=== PATIENT | female | born 2000 | race American Indian/Alaskan Native ===

== ENCOUNTER 2019-02-12 12:24 | Emergency (ER) | payer MEDICAID, OTHER ==
[2019-02-12 12:48] VITALS: BP 113/85
[2019-02-12 13:30] LABS: Basophils % (Auto) 0.1 % (0.0-1.8); Eosinophils # (Auto) 0.1 K/mm3 (0.0-0.4); Eosinophils % (Auto) 0.7 % (0.0-4.3); Hematocrit 40.5 % (30.3-42.9); Hemoglobin 14.1 gm/dl (10.1-14.3); Lymphocytes # (Auto) 1.3 K/mm3 (1.2-5.4); Lymphocytes % (Auto) 11.2 % (13.4-35.0); Mean Corpuscular HGB Conc 35 % (30-34); Mean Corpuscular Volume 88 fl (79-97); Monocytes # (Auto) 0.7 K/mm3 (0.0-0.8); Monocytes % (Auto) 6.2 % (0.0-7.3); Platelet Count 299 K/mm3 (140-440); Red Blood Count 4.59 M/mm3 (3.65-5.03); Red Cell Distribution Width 12.6 % (13.2-15.2)
[2019-02-12 13:50] LABS: BUN/Creatinine Ratio 18; Blood Urea Nitrogen 11 mg/dL (7-17); Calcium 9.6 mg/dL (8.4-10.2); Hemolysis Index 10
--- NOTE | 2019-02-12 13:54 | Emergency Department Report ---
ED General Adult HPI - General Chief complaint: Chest Pain Stated complaint: ANXIETY/CHEST PAIN Time Seen by Provider: 02/12/19 12:53 Source: patient, EMS Mode of arrival: Stretcher Limitations: No Limitations - History of Present Illness Initial comments: This is a 18 year old female that states that she is anxious and depressed. She is transported here via EMS. She states a neighbor found her "laying on the curb". She tells me that "I don't like to be alone". She admits previous prescription for anxiety "only for a week". She states that she is to see a counselor when she was younger for ADHD. She admits to depression but denies suicidal ideation. She doesn't offer any specific trigger for her behavior other than loneliness. She states that she has "anxiety attacks". She has had chest pain before during these episodes. She had some chest discomfort associated with anxiety, rapid breathing and tingling in her hands. She states that this is happened to her before. Her symptoms have resolved at this point other than being emotionally labile. She denies hallucinosis and paranoid ideation. -: Gradual, unknown Associated Symptoms: denies other symptoms - Related Data Previous Rx's Medication Instructions Recorded Last Taken Type ALPRAZolam [Xanax TAB] 1 mg PO TID PRN #10 tab 07/15/16 Unknown Rx Allergies Allergy/AdvReac Type Severity Reaction Status Date / Time No Known Allergies Allergy Verified 02/12/19 12:48 ED Review of Systems ROS: Stated complaint: ANXIETY/CHEST PAIN Other details as noted in HPI Constitutional: denies: chills, fever Eyes: denies: eye pain, eye discharge, vision change ENT: denies: ear pain, throat pain Respiratory: denies: cough, shortness of breath, wheezing Cardiovascular: denies: chest pain, palpitations Endocrine: no symptoms reported Gastrointestinal: denies: abdominal pain, nausea, diarrhea Genitourinary: denies: urgency, dysuria, discharge Musculoskeletal: denies: back pain, joint swelling, arthralgia Skin: denies: rash, lesions Neurological: denies: headache, weakness, paresthesias Psychiatric: as per HPI, anxiety, depression Hematological/Lymphatic: denies: easy bleeding, easy bruising ED Past Medical Hx - Past Medical History Hx Asthma: (childhood asthma) - Social History Smoking Status: Never Smoker - Medications Home Medications: Home Medications Medication Instructions Recorded Confirmed Last Taken Type ALPRAZolam [Xanax TAB] 1 mg PO TID PRN #10 tab 07/15/16 Unknown Rx ED Physical Exam - General Limitations: No Limitations General appearance: alert, other - Head Head exam: Present: atraumatic, normocephalic - Eye Eye exam: Present: normal appearance, PERRL, EOMI. Absent: scleral icterus - ENT ENT exam: Present: mucous membranes moist - Neck Neck exam: Present: normal inspection - Respiratory Respiratory exam: Present: normal lung sounds bilaterally. Absent: respiratory distress - Cardiovascular Cardiovascular Exam: Present: regular rate, normal rhythm. Absent: systolic murmur, diastolic murmur, rubs, gallop - GI/Abdominal GI/Abdominal exam: Present: soft, normal bowel sounds. Absent: distended, tenderness, guarding, rebound, rigid - Extremities Exam Extremities exam: Present: normal inspection, normal capillary refill. Absent: pedal edema, joint swelling, calf tenderness - Back Exam Back exam: Present: normal inspection - Neurological Exam Neurological exam: Present: alert, oriented X3, CN II-XII intact. Absent: motor sensory deficit - Psychiatric Psychiatric exam: Present: normal affect, normal mood - Skin Skin exam: Present: warm, dry, intact, normal color. Absent: rash ED Course Vital Signs 02/12/19 12:46 Temperature 98.5 F Pulse Rate 80 Respiratory 20 Rate Blood Pressure 113/85 O2 Sat by Pulse 98 Oximetry - Reevaluation(s) Reevaluation #1: Waiting mental health consultation. At this point I am presuming that they will determine that the patient has no indications for 1013 (involuntary confinemen t). I certainly have not found any personally. 02/12/19 14:52 Reevaluation #2: Discussed with mental health counselor. The patient was here with her grandmother by then. They contracted for safety. There was no thoughts of self-harm expressed. The patient was referred as above indicated. 02/12/19 15:28 ED Medical Decision Making - Lab Data Result diagrams: 02/12/19 13:18 02/12/19 13:18 Laboratory Results - last 24 hr 02/12/19 02/12/19 02/12/19 13:18 13:18 13:18 WBC 11.2 H RBC 4.59 Hgb 14.1 Hct 40.5 MCV 88 MCH 31 MCHC 35 H RDW 12.6 L Plt Count 299 Lymph % (Auto) 11.2 L Phelps % (Auto) 6.2 Eos % (Auto) 0.7 Baso % (Auto) 0.1 Lymph # 1.3 Phelps # 0.7 Eos # 0.1 Baso # 0.0 Seg Neutrophils % 81.8 H Seg Neutrophils # 9.2 H Sodium 139 Potassium 3.9 Chloride 101.8 Carbon Dioxide 23 Anion Gap 18 BUN 11 Creatinine 0.6 L Estimated GFR > 60 BUN/Creatinine Ratio 18 Glucose 88 Calcium 9.6 Plasma/Serum Alcohol < 0.01 Laboratory Results - last 24 hr 02/12/19 02/12/19 02/12/19 13:18 13:18 13:18 WBC 11.2 H RBC 4.59 Hgb 14.1 Hct 40.5 MCV 88 MCH 31 MCHC 35 H RDW 12.6 L Plt Count 299 Lymph % (Auto) 11.2 L Phelps % (Auto) 6.2 Eos % (Auto) 0.7 Baso % (Auto) 0.1 Lymph # 1.3 Phelps # 0.7 Eos # 0.1 Baso # 0.0 Seg Neutrophils % 81.8 H Seg Neutrophils # 9.2 H Sodium 139 Potassium 3.9 Chloride 101.8 Carbon Dioxide 23 Anion Gap 18 BUN 11 Creatinine 0.6 L Estimated GFR > 60 BUN/Creatinine Ratio 18 Glucose 88 Calcium 9.6 Urine Color Urine Turbidity Urine pH Ur Specific Orrick Urine Protein Urine Glucose (UA) Urine Ketones Urine Blood Urine Nitrite Urine Bilirubin Urine Urobilinogen Ur Leukocyte Esterase Urine WBC (Auto) Urine RBC (Auto) U Epithel Cells (Auto) Urine Bacteria (Auto) Urine HCG, Qual Urine Opiates Screen Urine Methadone Screen Ur Barbiturates Screen Ur Phencyclidine Scrn Ur Amphetamines Screen U Benzodiazepines Scrn Urine Cocaine Screen Plasma/Serum Alcohol < 0.01 02/12/19 02/12/19 13:30 Unknown WBC RBC Hgb Hct MCV MCH MCHC RDW Plt Count Lymph % (Auto) Phelps % (Auto) Eos % (Auto) Baso % (Auto) Lymph # Phelps # Eos # Baso # Seg Neutrophils % Seg Neutrophils # Sodium Potassium Chloride Carbon Dioxide Anion Gap BUN Creatinine Estimated GFR BUN/Creatinine Ratio Glucose Calcium Urine Color Yellow Urine Turbidity Slightly-cloudy Urine pH 8.0 H Ur Specific Orrick 1.006 Urine Protein <15 mg/dl Urine Glucose (UA) Neg Urine Ketones Neg Urine Blood Neg Urine Nitrite Neg Urine Bilirubin Neg Urine Urobilinogen < 2.0 Ur Leukocyte Esterase Neg Urine WBC (Auto) 1.0 Urine RBC (Auto) 2.0 U Epithel Cells (Auto) 18.0 H Urine Bacteria (Auto) 2+ Urine HCG, Qual Negative Urine Opiates Screen Presumptive negative Urine Methadone Screen Presumptive negative Ur Barbiturates Screen Presumptive negative Ur Phencyclidine Scrn Presumptive negative Ur Amphetamines Screen Presumptive negative U Benzodiazepines Scrn Presumptive negative Urine Cocaine Screen Presumptive negative Plasma/Serum Alcohol - EKG Data -: EKG Interpreted by Nc EKG shows normal: sinus rhythm, axis, intervals, QRS complexes, ST-T waves Rate: normal - EKG Data Interpretation: normal EKG Critical care attestation.: If time is entered above; I have spent that time in minutes in the direct care of this critically ill patient, excluding procedure time. ED Disposition Clinical Impression: Anxiety disorder Qualifiers: Anxiety disorder type: unspecified anxiety disorder Qualified Code(s): F41.9 - Anxiety disorder, unspecified Chest pain Qualifiers: Chest pain type: unspecified Qualified Code(s): R07.9 - Chest pain, unspecified Disposition: DC-01 TO HOME OR SELFCARE Is pt being admited?: No Does the pt Need Aspirin: No Condition: Stable Instructions: Chest Pain (ED), Generalized Anxiety Disorder (ED), Anxiety (ED) Additional Instructions: Return to the emergency department any acute change or problem. Follow-up re ferrals as indicated. Referrals: PRIMARY CARE, [Primary Care Provider] - 3-5 Days [facility] [Provider Group] - 2-3 Days [facility] [Outside] - 2-3 Days Time of Disposition: 14:54
[2019-02-12 13:59] LABS: Color,Urine Yellow (Yellow)
[2019-02-12 14:00] LABS: Bacteria,Urine 2+ /HPF (Negative); Bilirubin,Urine NEG (Negative); Blood,Urine NEG (Negative); Protein,Urine <15 mg/dL mg/dL (Negative); Urobilinogen,Urine < 2.0 mg/dL (<2.0)
[2019-02-12 14:01] LABS: HCG Qualitative,Urine Negative (Negative)
[2019-02-12 14:13] LABS: Amphetamine Screen,Urine PRESUMPTIVE NEGATIVE; Benzodiazepines Screen,Urine PRESUMPTIVE NEGATIVE; Cocaine Screen,Urine PRESUMPTIVE NEGATIVE; Methadone Screen,Urine PRESUMPTIVE NEGATIVE; Opiate Screen,Urine PRESUMPTIVE NEGATIVE
[2019-02-12 14:29] LABS: Cannabinoid Screen,Urine PRESUMPTIVE POSITIVE
== END 2019-02-12 17:01 | disposition home or self-care (01) ==
LOC: ED 12:24
DX: R41.9 Unspecified symptoms and signs involving cognitive functions and awareness (principal); J45.909 Unspecified asthma, uncomplicated
CPT/HCPCS: 36415; 80048; 80307; 81001; 81025; 85025; 93005; 93010; 99284; G0480; 80320

== ENCOUNTER 2021-03-30 05:32 | Inpatient (IN) | payer OTHER ==
[2021-03-30] MEDS ORDERED: LOPERAMIDE 2 MG CAP PO PRN (07:59)
[2021-03-30] MEDS ORDERED: TERBUTALINE 1 MG/1 ML INJ SUB-Q PRN (07:59)
[2021-03-30] MEDS ORDERED: LIDOCAINE (2%) 20 MG/1 ML VIAL 20 ML MDV INFILTRATI NR (07:59)
[2021-03-30] MEDS ORDERED: miSOPROStol 200 MCG TAB PR PRN (07:59)
[2021-03-30] MEDS ORDERED: CARBOPROST TROMETHAMINE 250 MCG/1 ML INJ IM PRN (07:59)
[2021-03-30] MEDS ORDERED: AMPICILLIN/NS 2 GM/100 ML 2 GM/100 ML BAG IV ONE (07:59)
[2021-03-30] MEDS ORDERED: METHYLERGONOVINE MALEATE 0.2 MG/ML VIAL IM PRN (07:59)
[2021-03-30] MEDS ORDERED: OXYTOCIN 10 UNIT/1 ML INJ IM PRN (07:59)
[2021-03-30] MEDS ORDERED: OXYTOCIN DRIP 30 UNITS/500 ML BAG IV SCH (08:00)
[2021-03-30 08:16] LABS: Mean Corpuscular HGB Conc 37 % (30-34); Mean Corpuscular Volume 85 fl (79-97); Platelet Count 361 K/mm3 (140-440); Red Blood Count 4.03 M/mm3 (3.65-5.03); Red Cell Distribution Width 13.5 % (13.2-15.2)
--- NOTE | 2021-03-30 08:31 | History and Physical Report ---
History of Present Illness Date of examination: 03/30/21 Date of admission: 03/30/21 07:59 Chief complaint: "Water broke" History of present illness: 20 yo, G1 @ 39.1 weeks gestation, initiated care with [facility] at 11.6 weeks gestation. Her has been complicated by anxiety, mild ventriculomegaly (resolved as of 03/03/21), placental lakes, subchorionic hemorrhage (APA co-managing), LGA and gestational DM. She presents to [facility] this morning with reports of "water broke at 0430 this morning". Reports + FM. Denies any VB. Labs: O+, antibody negative; rubella immune; VDRL non-reactive; HBsAg negative; HSV2 negative; GC/ Chlamydia negative; 1 hr gtt - 161; 3 hr gtt - 74, 184, 150, 96; GBS positive. Past History Past Medical History: other (Anxiety) Past Surgical History: no surgical history Family/Genetic History: diabetes, heart disease, hypertension Social history: single, full code. denies: smoking, alcohol abuse, prescription drug abuse, IV drug use - Obstetrical History Expected Date of Delivery: 04/05/21 Actual Gestation: 39 Week(s) 1 Day(s) : 1 Para: 0 Hx # Term Pregnancies: 0 Number of Pregnancies: 0 Spontaneous Abortions: 0 Induced : 0 Number of Living Children: 0 Medications and Allergies Allergies Allergy/AdvReac Type Severity Reaction Status Date / Time No Known Allergies Allergy Verified 02/12/19 12:48 Home Medications Medication Instructions Recorded Confirmed Last Taken Type Vit-Fe Fumar-FA [ 1 tab PO QDAY 03/30/21 03/30/21 03/29/21 History Vitamin] Active Meds: Active Medications Acetaminophen (Acetaminophen 325 Mg Tab) 650 mg PO Q4H PRN PRN Reason: Pain, Mild (1-3) Butorphanol Tartrate (Butorphanol 2 Mg/1 Ml Inj) 2 mg IV Q2H PRN PRN Reason: Pain , Severe (7-10) Carboprost Tromethamine (Carboprost Tromethamine 250 Mcg/1 Ml Inj) 250 mcg IM ONCE PRN PRN Reason: Uterine Bleeding Ephedrine Sulfate (Ephedrine Sulfate 50 Mg/1 Ml Inj) 10 mg IV Q2M PRN PRN Reason: Hypotension Fentanyl (Fentanyl 100 Mcg/2 Ml Inj) 100 mcg IV Q2H PRN PRN Reason: Pain,Severe (7-10) LABOR PAIN Oxytocin/Sodium Chloride (Pitocin/Ns 30 Unit/500ml) 30 units in 500 mls @ 2 mls/hr IV TITR FERCHO; Protocol Lactated Ringer's (Lactated Ringers) 1,000 mls @ 125 mls/hr IV DIRECT FERCHO Oxytocin/Sodium Chloride (Pitocin/Ns 30 Unit/500ml) 30 units in 500 mls @ 40 mls/hr IV TITR FERCHO; Protocol Ampicillin Sodium (Ampicillin/Ns 2 Gm/100 Ml) 2 gm in 100 mls @ 100 mls/hr IV ONCE ONE; Protocol Stop: 03/30/21 08:58 Ampicillin Sodium (Ampicillin/Ns 1 Gm/50 Ml) 1 gm in 50 mls @ 100 mls/hr IV Q4H FERCHO; Protocol Lidocaine (Lidocaine (2%) 20 Mg/1 Ml Vial 20 Ml Mdv) 20 ml INFILTRATI ONCE ONE Stop: 03/30/21 08:00 Loperamide HCl (Loperamide 2 Mg Cap) 2 mg PO ONCE PRN PRN Reason: give with Hemabate Methylergonovine Maleate (Methylergonovine Maleate 0.2 Mg/Ml Vial) 0.2 mg IM ONCE PRN PRN Reason: Uterine Bleeding Mineral Oil (Mineral Oil 30 Ml Oral Liqd) 30 ml PO QHS PRN PRN Reason: Constipation Misoprostol (Misoprostol 200 Mcg Tab) 800 mcg ID ONCE PRN PRN Reason: Uterine Bleeding Oxytocin (Oxytocin 10 Unit/1 Ml Inj) 10 unit IM ONCE PRN PRN Reason: Uterine Bleeding Terbutaline Sulfate (Terbutaline 1 Mg/1 Ml Inj) 0.25 mg SUB-Q ONCE PRN PRN Reason: Hyperstimulation/Hypertonicity Review of Systems All systems: negative Genitourinary: leakage of fluid (since 0430 this morning) - Vital Signs Vital signs: Vital Signs Pulse BP 100 H 126/77 03/30/21 06:13 03/30/21 06:13 Temp Pulse Resp BP Pulse Ox 98.2 F 78 17 131/88 03/30/21 07:00 03/30/21 07:02 03/30/21 07:00 03/30/21 07:02 - Physical Exam Breasts: Positive: normal Cardiovascular: Regular rate Lungs: Positive: Normal air movement Abdomen: Positive: other (gravid) Vagina: Positive: other (clear fluid noted) Uterus: Positive: enlarged (S=D) Extremities: Positive: edema - Obstetrical FHR: category 1 Uterine Contraction Monitor Mode: External Cervical Dilatation: 2.5 (per RN) Cervical Effacement Percentage: 70 station: -2 Uterine Contraction Frequency (min): 3-4 Uterine Contraction Pattern: Irregular Uterine Tone Measurement Phase: Resting Uterine Contraction Intensity: Mild Results Result Diagrams: 03/30/21 07:45 Abnormal lab results 03/30/21 Range/Units 06:34 Membranes Rupture Positive A (Negative) All other labs normal. Assessment and Plan - Patient Problems (1) SROM (spontaneous rupture of membranes) Current Visit: Yes Status: Acute Plan to address problem: Admit to L & D Initiate Pitocin as tolerated Pain meds as desired per orders Anticipate (2) Positive GBS test Current Visit: Yes Status: Acute Plan to address problem: Initiate GBS prophylaxis as ordered
[2021-03-30 08:34] LABS: Hematocrit 34.4 % (30.3-42.9); Hemoglobin 12.6 gm/dl (10.1-14.3)
[2021-03-30] MEDS ORDERED: fentaNYL 100 MCG/2 ML INJ IV PRN (09:00)
[2021-03-30] MEDS ORDERED: ACETAMINOPHEN 325 MG TAB PO PRN (09:00)
[2021-03-30] MEDS ORDERED: ePHEDrine SULFATE 50 MG/1 ML INJ IV PRN ×2 (09:00→21:13)
[2021-03-30] MEDS: LACTATED RINGERS 1,000 ML IV SCH ×2 (09:33→19:18)
[2021-03-30] MEDS: BUTORPHANOL 2 MG/1 ML INJ IV PRN ×3 (10:17→16:54)
[2021-03-30] MEDS: OXYTOCIN DRIP 30 UNITS/500 ML BAG IV SCH (11:40)
[2021-03-30] MEDS: ONDANSETRON 4 MG/2 ML INJ IV PRN (12:40)
[2021-03-30] MEDS: AMPICILLIN/NS 1 GM/50 ML 1 GM/50 ML BAG IV SCH ×3 (13:56→22:41)
[2021-03-30] MEDS ORDERED: NALOXONE 2 MG/2 ML INJ IV PRN (21:13)
--- NOTE | 2021-03-30 21:13 | Anesthesia Consultation ---
Anesthesia Consult and Med Hx Date of service: 03/30/21 - Airway Anesthetic Teeth Evaluation: Good ROM Head & Neck: Adequate Mental/Hyoid Distance: Adequate Mallampati Class: Class II Intubation Access Assessment: Probably Good - Pulmonary Exam CTA: Yes - Cardiac Exam Cardiac Exam: RRR - Pre-Operative Health Status ASA Pre-Surgery Classification: ASA3 Proposed Anesthetic Plan: Epidural - Pulmonary Hx Asthma: Yes (childhood) - Cardiovascular System Hx Hypertension: No - Central Nervous System Hx Seizures: No Hx Psychiatric Problems: No - Endocrine Hx Renal Disease: No Hx Non-Insulin Dependent Diabetes: Yes Hx Hypothyroidism: No Hx Hyperthyroidism: No - Hematic Hx Anemia: No Hx Sickle Cell Disease: No - Other Systems Hx Alcohol Use: No
--- NOTE | 2021-03-30 21:33 | Progress Note ---
Labor Epidural - Labor Epidural Start Time: 21:18 Stop Time: 21:24 Performed by:: AMY WARREN Procedure: Patient is requesting epidural for labor pain. H&P, and labs reviewed. Procedure explained, questions answered, consent obtained. Patient in sitting position with blood pressure cuff and pulse ox on and working. Timeout performed immediately before start of procedure. Sterile chlorahexadine 0.5% prep/drape. 3 mL 1% lidocaine skin wheal at L[3]-L[4]. 18-gauge i-Opticstead epidural needle advanced to [id number] with saline at [7] cm. 27-gauge spinal needle advanced until clear, free-flowing CSF. Intrathecal dexmedetomidine [5] mcg administered and needle removed. Epidural catheter advanced to [12] cm, negative aspiration for blood and csf, negative test dose 3 ml 1.5% lidocaine with epinephrine. Sterile steri-strips and tegaderm applied, followed by tape reinforcement. Patient tolerated procedure well.
[2021-03-30] MEDS ORDERED: MINERAL OIL 30 ML ORAL LIQD PO PRN (22:00)
[2021-03-30] MEDS: fentaNYL-BUPIV 2 MCG/ML-0.125% 200 MCG/100 ML BAG EPIDURAL SCH (22:43)
[2021-03-31] MEDS ORDERED: BUPIVACAINE/PF (0.25%) 2.5 MG/ML 10 ML VIAL INFILTRATI ONE (02:31)
[2021-03-31] MEDS: ONDANSETRON 4 MG/2 ML INJ IV PRN (02:39)
[2021-03-31] MEDS: AMPICILLIN/NS 1 GM/50 ML 1 GM/50 ML BAG IV SCH (06:06)
[2021-03-31] MEDS: OXYTOCIN DRIP 30 UNITS/500 ML BAG IV SCH (08:00)
[2021-03-31] MEDS: fentaNYL-BUPIV 2 MCG/ML-0.125% 200 MCG/100 ML BAG EPIDURAL SCH (08:01)
--- NOTE | 2021-03-31 08:41 | Event Note ---
Date: 03/31/21 Pt uncomfortable with epidural. SVE: /-3. IUPC placed. Continue to closely monitor clinical status.
[2021-03-31] MEDS ORDERED: BICITRA ORAL LIQD 30ML ONE (12:24)
[2021-03-31] MEDS ORDERED: ceFAZolin/Water 2 GM/20 ML 2 GM/20 ML SYRINGE IV ONE (12:25)
[2021-03-31] MEDS ORDERED: FAMOTIDINE 20 MG/2 ML INJ IV ONE ×2 (12:25→13:00)
[2021-03-31] MEDS ORDERED: LACTATED RINGERS 1,000 ML IV SCH (13:00)
[2021-03-31] MEDS ORDERED: METOCLOPRAMIDE 10 MG/2 ML INJ IV ONE (13:00)
[2021-03-31] MEDS ORDERED: ceFAZolin/Water 2 GM/20 ML 2 GM/20 ML SYRINGE IV NR (13:00)
[2021-03-31] MEDS ORDERED: OXYTOCIN DRIP 30 UNITS/500 ML BAG IV SCH ×2 (13:00→17:00)
[2021-03-31] MEDS ORDERED: BICITRA ORAL LIQD 30ML PO ONE (13:00)
[2021-03-31] MEDS ORDERED: METHYLERGONOVINE MALEATE 0.2 MG/ML VIAL IM PRN (13:06)
[2021-03-31] MEDS ORDERED: miSOPROStol 200 MCG TAB PR PRN (13:06)
[2021-03-31] MEDS ORDERED: WATER FOR IRRIG STERILE 1,500 ML BOTTLE IR ONE (13:20)
[2021-03-31] MEDS ORDERED: SODIUM CHLORIDE 0.9% IRR 1,500 ML BOTTLE IR ONE (13:20)
--- NOTE | 2021-03-31 13:34 | Progress Note ---
Spinal Anesthesia Block - Spinal Anesthesia Block Start Time: 12:58 Stop Time: 13:03 Performed by:: AMY WARREN Procedure: Epidural spotty/not adequate for surgical anesthesiaSitting, sterile chlorahexadine 0.5% prep/drape, 1% lidocaine skin local, 25G spinal needle + introducer at L3-4, + CSF, - Heme, [1.9 ml 0.5% bupivacaine + 10 mcg dexmedetomidine] injected, drape removed, patient positioned supine with left uterine displacement, and spinal level verified to be adequate prior to surgery. SRNA
--- NOTE | 2021-03-31 14:42 | Procedure Note ---
OB Delivery Note - Delivery Date of Delivery: 03/31/21 Surgeon: KATYA DEJESUS - Section Preop diagnosis: arrest of dilation Postop diagnosis: same section procedure: section, primary low transverse Disposition: PACU Narrative: Please see operative report - A at 1 minute: 8 at 5 minutes: 9 Gender: Male (3698g (8lb 2oz) @ 1347 pm)
[2021-03-31] MEDS ORDERED: SODIUM CHLORIDE 0.9% 100 ML ONE (14:43)
[2021-03-31] MEDS ORDERED: PHENYLEPHRINE 10 MG/1 ML INJ SDV ONE (14:43)
[2021-03-31] MEDS ORDERED: dexAMETHasone 20 MG/5 ML VIAL ONE (14:43)
[2021-03-31] MEDS ORDERED: ONDANSETRON 4 MG/2 ML INJ ONE (14:43)
[2021-03-31] MEDS ORDERED: HETASTARCH 6% 500 ML IV ONE (14:43)
[2021-03-31] MEDS ORDERED: BUPIVACAINE/PF (0.5%) 5 MG/1 ML 30 ML VIAL INFILTRATI ONE (14:43)
--- NOTE | 2021-03-31 14:44 | Operative Report ---
Operative Report Operative Report: Date of procedure: March 31, 2021 Preoperative diagnosis: 1)IUP at 39w2d 2) SROM 3) Prolonged ROM 4) Arrest of D ilation 5) Obesity Postoperative diagnosis: Same Procedure: Primary low transverse section Surgeon: Arianne Liang M.D. Anesthesia: Regional Findings: 1) Viable male , Apgars 8 and 9, weight 3698 g, (8 lb 2.4 oz) in cephalic presentation. Occiput posterior 2) Normal-appearing uterus ovaries and tubes Estimated blood loss: mL IV fluids: 1300 mL Urine output: 225 mL, clear but concentrated at the end of the procedure Drains: Pickering to gravity Specimens: None Complications:None. Counts correct x 3 Disposition: Stable to PACU Indication for procedure: Pt is a 20 year old primigravida at 39w2d who presents with rupture of membranes at 0430 on 03/30/21 and progressed to 7 cm and arrested there despite adequate contractility. The decision was made to proceed to section. Operation in detail: After the risks, benefits, alternatives and complications were explained to the patient she gave informed consent for the procedure. She was subsequently taken to the operating room where regional anesthesia was noted to be adequate. She was placed in the dorsal supine position with leftward tilt and prepped and draped in a normal sterile fashion. heart tones were noted prior to incision. A timeout was performed. A Pfannenstiel skin incision was made with the knife and carried down to the layer of the fascia with the Bovie. The fascia was incised in the midline and the fascial incision was extended bilaterally with the Bovie. The fascial incision was then stretched. The rectus muscles were then in the midline. The peritoneum was then entered bluntly. The peritoneal incision was extended with good visualization of the bladder. The peritoneal incision was then stretched. An Josse retractor was placed. The bladder blade was then placed. The vesicouterine peritoneum was grasped with smooth pick ups and incised with Metzenbaum scissors . A bladder flap was then created digitally and the bladder blade was replaced. A transverse incision was made in the lower uterine segment with a knife and extended bilaterally with the bandage scissors. head delivered with ease, followed by shoulders and body. bulb suctioned at delivery. Cord clamped and cut. handed to NICU staff in attendance. Cord blood was collected. The placenta was then delivered manually. The uterus was then exteriorized and cleared of all clots and debris. The hysterotomy was then reapproximated with 0 Monocryl in a running locked fashion. A second layer of the same suture was used in imbricating fashion. A figure of eight was placed at the left side of the hysterotomy. The hysterotomy was inspected and hemostasis was noted. The gutters were irrigated and cleared of all clots and debris. The uterus was placed back into the peritoneal cavity. The hysterotomy was again inspected and noted to be hemostatic. Surgicel was placed over the hysterotomy. The Josse retractor was removed. . The peritoneum was reapproximated with 2-0 Vicryl in a running fashion incorporating the rectus muscles. Surgicel was placed over the rectus muscles. The fascia was reapproximated with 0 Vicryl in a running fashion. The subcutaneous tissue was reapproximated with 2-0 Vicryl in a running fashion. The skin was reapproximated with 3-0 Monocryl in a subcuticular fashion. The incision was then covered with steri strips and a pressure dressing. The procedure was then ended. The patient tolerated the procedure well and was taken to the PACU in stable condition. All instrument, lap, and needle counts were correct 3.
--- NOTE | 2021-03-31 15:19 | Progress Note ---
Regional Anesthesia Block - Regional Anesthesia Block Start Time: 15:00 Stop Time: 15:05 Performed By:: AMY WARREN Procedure: U/S guided bilateral tap block performed for post-operative pain requested by Dr. Liang. H&P & labs reviewed. Procedure explained, questions answered, consent obtained. Patient in the supine position with ekg, blood pressure cuff and pulse ox on and working in PACU. Timeout performed immediately before start of procedure. Probe placed in the mid-axillary line and the external oblique, internal oblique, and transverse abdominus muscles identified. Skin was cleansed with chlorahexadine 0.5% and allowed to dry. A 4" 20 G Carter echogenic needle was advanced in plane until the tip was in the fascial plane between the internal oblique and the transverse abdominus. After negative aspiration 35 ml/side of [30 ml 0.5% Bupivacaine], [10 mg dexamethasone], and [40 ml sterile saline] was injected in 5 ml increments with negative aspiration in between. Patient tolerated procedure well. SRNA
[2021-03-31] MEDS ORDERED: NALOXONE 0.4 MG/1 ML INJ IV PRN (17:00)
[2021-03-31] MEDS ORDERED: SIMETHICONE 80 MG CHEW TAB PO PRN (17:00)
[2021-03-31] MEDS ORDERED: MORPHINE 4 MG/1 ML INJ IV PRN (17:00)
[2021-03-31] MEDS ORDERED: LANOLIN/ZINC/DIMETHICONE (LANSINOH) 7 GM TP PRN (17:00)
[2021-03-31] MEDS ORDERED: WITCH HAZEL/ GLYCERIN PAD TP PRN (17:00)
[2021-03-31] MEDS ORDERED: ONDANSETRON 4 MG/2 ML INJ IV PRN (17:00)
[2021-03-31] MEDS ORDERED: MAGNESIUM HYDROXIDE (MOM) ORAL LIQD UDC PO PRN (17:00)
[2021-03-31] MEDS ORDERED: MORPHINE 2 MG/1 ML INJ IV PRN (17:00)
[2021-03-31] MEDS ORDERED: D5W/LACTATED RINGERS 1,000 ML IV SCH (17:00)
[2021-03-31] MEDS: KETOROLAC 30 MG/1 ML INJ IV SCH ×2 (17:45→23:56)
[2021-03-31] MEDS: ceFAZolin/NS 1 GM/50 ML 1 GM/50 ML BAG IV SCH (20:26)
--- NOTE | 2021-03-31 21:54 | Post Anesthesia Evaluation ---
- Post Anesthesia Evaluation Patient Participated: Yes Airway Patent: Yes Stable Respiratory Function: Yes Nausea/Vomiting: No Temp > 96.8F: Yes Pain Manageable: Yes Adequeate Hydration: Yes Anesthesia Complications: No Block Receding Appropriately: Yes
[2021-04-01] MEDS: KETOROLAC 30 MG/1 ML INJ IV SCH ×2 (05:14→12:45)
[2021-04-01] MEDS: ceFAZolin/NS 1 GM/50 ML 1 GM/50 ML BAG IV SCH (05:14)
[2021-04-01] MEDS ORDERED: MEASLES, MUMPS & RUBELLA 12,500 UNIT/0.5 ML VACCINE SUB-Q ONE (06:00)
[2021-04-01] MEDS ORDERED: TETANUS,DIPH,PERTUSS(ACELL) VACCINE 0.5 ML SYRINGE IM ONE (06:00)
[2021-04-01 06:16] LABS: Hematocrit 26.8 % (30.3-42.9); Hemoglobin 9.2 gm/dl (10.1-14.3)
[2021-04-01] MEDS: oxyCODONE /ACETAMINOPHEN 5-325MG TAB PO PRN ×2 (10:34→18:01)
[2021-04-01] MEDS: FERROUS SULFATE 325 MG TAB PO SCH (10:36)
--- NOTE | 2021-04-01 13:45 | Progress Note ---
Assessment and Plan - Patient Problems (1) Status post primary low transverse section Current Visit: Yes Status: Acute Plan to address problem: Continue routine PP orders Keep dressing clean and dry, remove after showering Anticipate d/c home in 24-48 hrs if stable (2) Anemia Current Visit: Yes Status: Acute Qualifiers: Anemia type: other cause Other causes of anemia: acute posthemorrhagic Qualified Code(s): D62 - Acute posthemorrhagic anemia Plan to address problem: Asymptomatic Increase iron rich foods into diet Continue daily iron supplementation as directed Subjective - Subjective Date of service: 04/01/21 Principal diagnosis: S/P Primary C/S; POD#1; Anemia Interval history: 20 yo, G1 @ 39.1 weeks gestation, initiated care with [facility] at 11.6 weeks gestation. Her has been complicated by anxiety, mild ventriculomegaly (resolved as of 03/03/21), placental lakes, subchorionic hemorrhage (APA co-managing), LGA and gestational DM. She presents to [facility] this morning with reports of "water broke at 0430 this morning". Reports + FM. Denies any VB. Labs: O+, antibody negative; rubella immune; VDRL non-reactive; HBsAg negative; HSV2 negative; GC/ Chlamydia negative; 1 hr gtt - 161; 3 hr gtt - 74, 184, 150, 96; GBS positive. Patient reports: appetite normal, voiding normally (states that she voids a sufficient amt when she uses restroom, however, she doesn't have the urge to urinate), pain well controlled (with medications), flatus, ambulating normally, no bowel movement [place]: doing well, bottle feeding (and attempting to latch) Objective - Vital Signs Latest vital signs: Vital Signs Temp Pulse Resp BP BP Pulse Ox 04/01/21 12:02 97.9 F 84 20 109/71 96 04/01/21 08:11 97.7 F 68 20 113/69 98 04/01/21 00:00 98.0 F 86 18 118/63 98 03/31/21 21:00 99.5 F 97 H 20 109/67 96 03/31/21 20:25 18 03/31/21 16:45 98.7 F 92 H 18 110/61 96 03/31/21 16:05 100 F H 112 H 18 118/66 100 03/31/21 16:00 116 H 18 116/65 100 03/31/21 15:45 96 H 18 116/67 100 03/31/21 15:35 97 H 18 118/64 100 03/31/21 15:30 104 H 18 113/69 100 03/31/21 15:25 100 H 18 120/60 100 03/31/21 15:20 94 H 18 119/56 100 03/31/21 15:15 95 H 16 110/47 98 03/31/21 15:10 93 H 17 113/50 98 03/31/21 15:05 84 16 103/47 99 03/31/21 15:00 75 16 101/56 99 03/31/21 14:55 98.9 F 84 17 96/49 99 Intake and Output 03/31/21 04/01/21 04/01/21 23:59 07:59 15:59 Intake Total 990 200 360 Output Total 1450 300 Balance -460 -100 360 Intake: IV 550 ANCEF/NS 1 GM/50 ML 1 gm 50 In 50 ml @ 100 mls/hr IV Q8H [facility] Rx#:[id number] Oral 440 200 360 Output: Urine 1450 300 Indwelling Catheter 750 150 Uretheral ([place]) 550 150 Other: Total, Intake Amount 240 200 360 Total, Output Amount 150 150 - Exam Breasts: Present: normal Cardiovascular: Present: Regular rate Lungs: Present: Normal air movement Abdomen: Present: soft, tenderness Uterus: Present: firm, fundal height below umbilicus (U-2) Extremities: Present: normal Deep Tendon Reflex Grade: Normal +2 Incision: Present: dressed (no shadow drainage or bleeding noted) - Labs Labs: Abnormal lab results 04/01/21 Range/Units 05:44 Hgb 9.2 L D (10.1-14.3) gm/dl Hct 26.8 L D (30.3-42.9) %
[2021-04-02] MEDS: oxyCODONE /ACETAMINOPHEN 5-325MG TAB PO PRN ×3 (00:30→11:15)
[2021-04-02] MEDS: IBUPROFEN 800 MG TAB PO PRN ×2 (04:20→16:12)
[2021-04-02] MEDS: FERROUS SULFATE 325 MG TAB PO SCH (11:16)
--- NOTE | 2021-04-02 15:39 | Discharge Summary ---
Providers - Providers Date of Admission: 03/30/21 07:59 Date of discharge: 04/02/21 Attending physician: TIMOTHY NEWMAN 03/31/21 17:00 Consult to Automotive Teacher [CONS] Routine Reason For Exam: Primary care physician: TIMOTHY NEWMAN Hospitalization Reason for admission: rupture of membranes Delivery: Procedure: primary low transverse Episiotomy: none Laceration: none Incision: dry, intact Other procedures: none complications: none Discharge diagnosis: IUP at term delivered baby: male Hospital course: Pt is a 20 year old primigravida at 39w2d who presents with rupture of membranes at 0430 on 03/30/21 and progressed to 7 cm and arrested there despite adequate contractility. The decision was made to proceed to section. Condition at discharge: Stable Disposition: DC-01 TO HOME OR SELFCARE - Discharge Diagnoses (1) Status post primary low transverse section Status: Acute (2) Anemia Status: Acute Qualifiers: Anemia type: other cause Other causes of anemia: acute posthemorrhagic Qualified Code(s): D62 - Acute posthemorrhagic anemia Comment: Asymptomatic Increase iron rich foods into diet Plan - Discharge Medications Prescriptions: Ferrous Sulfate [Feosol 325 MG tab] 325 mg PO QDAY 30 Days #30 tablet Ibuprofen [Motrin 800 MG tab] 800 mg PO Q8HR PRN 7 Days #21 tablet PRN Reason: Pain, Moderate (4-6) oxyCODONE /ACETAMINOPHEN [Percocet 5/325] 1 tab PO Q6HR PRN #40 tablet PRN Reason: Pain - Provider Discharge Summary Activity: routine, no sex for 6 weeks, no heavy lifting 4 weeks, no strenuous exercise Diet: other (Iron rich diet) Instructions: routine Additional instructions: [] Smoking cessation referral if applicable(refer to patient education folder for contact #) [] Refer to [facility] Booklet Call your doctor immediately for: * Fever > 100.5 * Heavy vaginal bleeding ( >1 pad per hour) * Severe persistent headache * Shortness of breath * Reddened, hot, painful area to leg or breast * Drainage or odor from incision. * Keep incision clean and dry at all times and follow doctor's instructions regarding bathing/showering * F/U at office in 1 week for incision check - Follow up plan Follow up: TIMOTHY NEWMAN MD [Primary Care Provider] - 7 Days
[2021-04-02 18:08] VITALS: BP 116/81
== END 2021-04-02 16:39 | disposition home or self-care (01) | DRG 765 ==
LOC: TRG 05:32 → APU 05:40 → LD 07:59 → TRG 07:59 → APU 03-31 12:52 → OB 03-31 16:24
PROVIDERS: ADMIT Obstetrics & Gynecology; ATTEND Obstetrics & Gynecology
PROC: 10D00Z1 Extraction of Products of Conception, Low, Open Approach (ICD-10-PCS; principal; 2021-03-31)
PROC: 3E0R3BZ Introduction of Anesthetic Agent into Spinal Canal, Percutaneous Approach (ICD-10-PCS; 2021-03-31)
DX: O42.90 Premature rupture of membranes, unspecified as to length of time between rupture and onset of labor, unspecified weeks of gestation (principal); D62 Acute posthemorrhagic anemia; O99.344 Other mental disorders complicating childbirth; Z37.0 Single live birth; F41.9 Anxiety disorder, unspecified; Z20.822 Contact with and (suspected) exposure to COVID-19; O99.214 Obesity complicating childbirth; E66.9 Obesity, unspecified; O62.1 Secondary uterine inertia; Z3A.39 39 weeks gestation of pregnancy; D64.9 Anemia, unspecified; O90.81 Anemia of the puerperium
CPT/HCPCS: 36415; 59025; 84112; 85014; 85018; 85027; 86592; 86850; 86900; 86901; 99406; G0378; J0290; J0595; J0690; J1100; J1885; J2270; J2370; J2405; J2590; J2765; J3490; J7120; J7121; U0003